=== PATIENT | female | born 1975 | race Caucasian/White ===

== ENCOUNTER 2017-08-27 05:16 | Emergency (ER) | payer MEDICAID ==
[~2017-08-27] VITALS: Ht 167.6 cm; Wt 68.0 kg
[~2017-08-27 05:16] MED LIST: CLIN150C8 PO; CLIN300C85 PO; HYDR-569 PO
[2017-08-27 05:21] VITALS: BP 142/82
[2017-08-27] MEDS ORDERED: bacitracin 15gm ointment TP ONE (05:30)
[2017-08-27] MEDS ORDERED: TETanus/Pertussis (Acell)/Diphther VAC/PF (Tdap-Adult) 0.5ml syringe IM ONE (05:30)
== END 2017-08-27 05:17 | disposition left against medical advice (07) ==
LOC: ER 05:16
DX: Z02.89 Encounter for other administrative examinations (principal); Z53.21 Procedure and treatment not carried out due to patient leaving prior to being seen by health care provider

== ENCOUNTER 2018-06-18 15:35 | Emergency (ER) | payer MEDICAID ==
[~2018-06-18] VITALS: Ht 175.3 cm; Wt 66.0 kg
[~2018-06-18 15:35] MED LIST changes: +CLIN-96 PO; -CLIN300C85 PO; +HYDR-4383 PO; -HYDR-569 PO
[2018-06-18 15:44] VITALS: BP 117/84
[2018-06-18 16:50] LABS: URINE HCG NEGATIVE (NEG)
--- NOTE | 2018-06-18 16:54 | NUR ---
CALLED LAB AND SPOKE TO RADHA, HE WILL ADD LIPASE AND SERUM TO PREVIOUS LABS
[2018-06-18 16:58] LABS: CLARITY,URINE CLOUDY (Clear); COLOR,URINE YELLOW (Yellow); GLUCOSE, URINE NEGATIVE (Neg); KETONES,URINE NEGATIVE (Neg); LEUKOCYTE ESTERASE ,URINE SMALL (Neg); NITRITES, URINE NEGATIVE (Neg); OCCULT BLOOD,URINE LARGE (Neg); PH,URINE 6.5 (4.8-8.0); PROTEIN,URINE NEGATIVE (Neg); UROBILINOGEN,URINE 0.2 E.U/dL (0.2-1.0)
[2018-06-18 17:00] LABS: UA COLLECTION TYPE CLN CATCH MIDSTREAM
[2018-06-18] MEDS ORDERED: CEPH-572 PO (17:04)
[2018-06-18] MEDS ORDERED: SULF1TAB49 PO (17:04)
[2018-06-18] MEDS ORDERED: HYDR-4383 PO (17:07)
[2018-06-18 17:33] LABS: MUCUS STRANDS MODERATE /LPF (Neg)
[2018-06-18 17:34] LABS: BACTERIA,URINE 2+ /HPF (Neg)
[2018-06-18 17:35] LABS: RBC,URINE 20-50 /HPF (0-2)
[2018-06-18 17:38] LABS: SQUAMOUS EPITHELIAL CELL,UR MANY /LPF (FEW); WBC CLUMPS,URINE MANY /HPF (NEGATIVE)
== END 2018-06-18 17:22 | disposition home or self-care (01) ==
LOC: ER 15:36
DX: L02.31 Cutaneous abscess of buttock (principal); N39.0 Urinary tract infection, site not specified; Z86.14 Personal history of Methicillin resistant Staphylococcus aureus infection; F12.90 Cannabis use, unspecified, uncomplicated; F11.90 Opioid use, unspecified, uncomplicated; F15.90 Other stimulant use, unspecified, uncomplicated; Z88.1 Allergy status to other antibiotic agents; Z79.899 Other long term (current) drug therapy
CPT/HCPCS: 10060; 81001; 81025; 99283

== ENCOUNTER 2018-06-25 16:31 | Emergency (ER) | payer MEDICAID ==
[~2018-06-25] VITALS: Ht 172.7 cm; Wt 65.9 kg
[~2018-06-25 16:31] MED LIST changes: +CEPH-572 PO; +SULF1TAB49 PO
[2018-06-25 16:38] VITALS: BP 113/68
== END 2018-06-25 17:40 | disposition home or self-care (01) ==
LOC: ER 16:31
DX: L02.414 Cutaneous abscess of left upper limb (principal); L02.413 Cutaneous abscess of right upper limb; L02.416 Cutaneous abscess of left lower limb; L02.415 Cutaneous abscess of right lower limb; Z48.01 Encounter for change or removal of surgical wound dressing; F17.200 Nicotine dependence, unspecified, uncomplicated; F12.90 Cannabis use, unspecified, uncomplicated; F15.90 Other stimulant use, unspecified, uncomplicated; F11.90 Opioid use, unspecified, uncomplicated; Z88.1 Allergy status to other antibiotic agents
CPT/HCPCS: 99281

== ENCOUNTER 2020-06-05 01:57 | Emergency (ER) | payer MEDICAID ==
[~2020-06-05] VITALS: Ht 175.3 cm; Wt 65.9 kg
[~2020-06-05 01:57] MED LIST changes: -CEPH-572 PO; -CLIN-96 PO; +CLIN-97 PO; -SULF1TAB49 PO
[2020-06-05] MEDS ORDERED: pantoprazole 40mg Tablet.DR PO ONE (02:40)
[2020-06-05] MEDS ORDERED: ibuprofen tablet 400 MG TABLET PO ONE (02:40)
[2020-06-05] MEDS ORDERED: LIDOcaine Viscous 15ml cup MM ONE (02:40)
[2020-06-05] MEDS ORDERED: mag hydrox/Alum hydrox/simeth 30ml oral suspension PO ONE (02:40)
[2020-06-05] MEDS ORDERED: ondansetron 4mg rapidly disintigrating tab PO ONE (02:40)
[2020-06-05] MEDS ORDERED: acetaminophen 325mg tablet PO ONE (02:40)
[2020-06-05] MEDS ORDERED: famotidine 20mg tablet PO ONE (02:40)
[2020-06-05 03:04] LABS: BASOPHILS # (AUTO) 0.1 X10'3 (0-0.2); BASOPHILS % (AUTO) 0.9 % (0-1); EOSINOPHILS # (AUTO) 0.1 X10'3 (0-0.9); EOSINOPHILS % (AUTO) 2.4 % (0-6); HEMATOCRIT 37.4 % (35.0-45.0); HEMOGLOBIN 12.9 g/dl (12.0-16.0); LYMPHOCYTES # (AUTO) 2.5 X10'3 (1.1-4.8); LYMPHOCYTES % (AUTO) 40.7 % (21-51); MEAN CORPUSCULAR HGB CONC 34.5 g/dL (33.0-36.5); MEAN CORPUSCULAR VOLUME 92.7 FL (78-98); MEAN PLATELET VOLUME 8.7 FL (7.4-10.4); MONOCYTES # (AUTO) 0.7 X10'3 (0-0.9); MONOCYTES % (AUTO) 12.2 % (2-12); NEUTROPHILS # (AUTO) 2.6 X10'3 (1.8-7.7); NEUTROPHILS % (AUTO) 43.8 % (42-75); PLATELET COUNT 177 X10'3 (140-440); RED BLOOD COUNT 4.04 X10'6 (4.20-5.60); RED CELL DISTRIBUTION WIDTH 13.1 % (11.5-14.5)
[2020-06-05 03:21] LABS: URINE HCG NEGATIVE (NEG)
[2020-06-05 03:38] LABS: CLARITY,URINE SLIGHTLY CLOUDY (Clear); COLOR,URINE YELLOW (Yellow); GLUCOSE, URINE NEGATIVE (Neg); KETONES,URINE NEGATIVE (Neg); LEUKOCYTE ESTERASE ,URINE TRACE (Neg); NITRITES, URINE POSITIVE (Neg); OCCULT BLOOD,URINE NEGATIVE (Neg); PH,URINE 6.5 (4.8-8.0); PROTEIN,URINE NEGATIVE (Neg); UA COLLECTION TYPE CLN CATCH MIDSTREAM
[2020-06-05 03:44] LABS: SQUAMOUS EPITHELIAL CELL,UR MODERATE /LPF (FEW)
[2020-06-05 03:45] LABS: RBC,URINE NONE SEEN /HPF (0-2)
[2020-06-05 03:46] LABS: BACTERIA,URINE 4+ /HPF (Neg); MUCUS STRANDS FEW /LPF (Neg)
[2020-06-05] MEDS ORDERED: clindamycin 150mg capsule PO ONE ×2 (04:55→05:35)
[2020-06-05] MEDS ORDERED: PANT-47 PO (04:57)
[2020-06-05] MEDS ORDERED: ONDA4TAB6 PO (04:57)
[2020-06-05] MEDS ORDERED: CLIN150C8 PO (04:57)
[2020-06-05 05:12] LABS: ALANINE AMINOTRANSFERASE 61 U/L (12-78); ALBUMIN 3.3 G/DL (3.4-5.0); ALBUMIN/GLOBULIN RATIO 0.8 (1.1-1.5); ALKALINE PHOSPHATASE 62 IU/L (46-116); ANION GAP 5 (8-16); ASPARTATE AMINO TRANSFERASE 41 U/L (10-37); BILIRUBIN,TOTAL 0.7 MG/DL (0.1-1.0); BLOOD UREA NITROGEN 14 MG/DL (7-18); BUN/CREATININE RATIO 17.7 (6.6-38.0); CALCIUM 8.9 MG/DL (8.5-10.1); CHLORIDE 103 MMOL/L (99-107); CREATININE 0.79 MG/DL (0.40-0.90); LIPASE 63 U/L (73-393); POTASSIUM 3.2 MMOL/L (3.5-5.1); SODIUM 140 MMOL/L (135-145); TOTAL CARBON DIOXIDE 32.1 MMOL/L (24-32); TOTAL PROTEIN 7.2 G/DL (6.4-8.2); TROPONIN I < 0.04 NG/ML (0.0-0.05); eGFR 79 ML/MIN
[2020-06-05 05:22] LABS: GLUCOSE 52 MG/DL (70-104)
[2020-06-05 05:40] VITALS: BP 127/78
== END 2020-06-05 05:48 | disposition home or self-care (01) ==
LOC: ER 01:57
DX: K21.9 Gastro-esophageal reflux disease without esophagitis (principal); N39.0 Urinary tract infection, site not specified; F12.90 Cannabis use, unspecified, uncomplicated; F15.90 Other stimulant use, unspecified, uncomplicated; F11.90 Opioid use, unspecified, uncomplicated; Z72.89 Other problems related to lifestyle; Z86.19 Personal history of other infectious and parasitic diseases; Z88.1 Allergy status to other antibiotic agents; Z79.2 Long term (current) use of antibiotics; Z79.899 Other long term (current) drug therapy; Z86.14 Personal history of Methicillin resistant Staphylococcus aureus infection
CPT/HCPCS: 36415; 80053; 81001; 81025; 83690; 84484; 85025; 87077; 87088; 87186; 93005; 99284

== ENCOUNTER 2020-09-14 22:58 | Emergency (ER) | payer MEDICAID ==
[~2020-09-14] VITALS: Ht 175.3 cm; Wt 63.6 kg
[~2020-09-14 22:58] MED LIST changes: +ONDA4TAB6 PO; +PANT-47 PO
[2020-09-14] MEDS ORDERED: PRED20TA PO (23:09)
[2020-09-14] MEDS ORDERED: dexamethasone 4mg tablet PO ONE (23:10)
[2020-09-14 23:43] VITALS: BP 138/72
== END 2020-09-14 23:47 | disposition home or self-care (01) ==
LOC: ER 22:59
DX: J02.9 Acute pharyngitis, unspecified (principal); F41.9 Anxiety disorder, unspecified; F32.9 Major depressive disorder, single episode, unspecified; F12.90 Cannabis use, unspecified, uncomplicated; F15.90 Other stimulant use, unspecified, uncomplicated; F11.90 Opioid use, unspecified, uncomplicated; F19.90 Other psychoactive substance use, unspecified, uncomplicated; Z86.19 Personal history of other infectious and parasitic diseases; Z86.14 Personal history of Methicillin resistant Staphylococcus aureus infection; Z72.89 Other problems related to lifestyle; Z88.1 Allergy status to other antibiotic agents; Z79.2 Long term (current) use of antibiotics; Z79.899 Other long term (current) drug therapy
CPT/HCPCS: 99283

== ENCOUNTER 2020-10-24 11:48 | Emergency (ER) | payer MEDICAID ==
[~2020-10-24] VITALS: Ht 175.3 cm; Wt 65.9 kg
[2020-10-24 12:13] VITALS: BP 129/90
[2020-10-24] MEDS ORDERED: bacitracin 15gm ointment TP ONE (13:20)
[2020-10-24] MEDS ORDERED: TETanus/Pertussis (Acell)/Diphther VAC/PF (Tdap-Adult) 0.5ml syringe IMVAC ONE (13:20)
== END 2020-10-24 13:34 | disposition home or self-care (01) ==
LOC: ER 11:48
DX: S80.812A Abrasion, left lower leg, initial encounter (principal); F12.90 Cannabis use, unspecified, uncomplicated; F15.90 Other stimulant use, unspecified, uncomplicated; F11.90 Opioid use, unspecified, uncomplicated; Z86.14 Personal history of Methicillin resistant Staphylococcus aureus infection; Z86.19 Personal history of other infectious and parasitic diseases; Z88.1 Allergy status to other antibiotic agents; Z79.2 Long term (current) use of antibiotics; Z79.899 Other long term (current) drug therapy; V09.9XXA Pedestrian injured in unspecified transport accident, initial encounter; Y93.89 Activity, other specified; Y92.89 Other specified places as the place of occurrence of the external cause; Y99.8 Other external cause status
CPT/HCPCS: 90471; 90715; 99283

== ENCOUNTER 2021-02-16 11:08 | Emergency (ER) | payer MEDICAID ==
[~2021-02-16] VITALS: Ht 172.7 cm; Wt 63.6 kg
[2021-02-16 11:10] VITALS: BP 137/82
[2021-02-16] MEDS ORDERED: LIDOcaine 1% W/epiNEPHrine 1:200,000 10ml vial IJ ONE (16:20)
[2021-02-16] MEDS ORDERED: LIDOcaine 1% w/epiNEPHrine 1:200,000 30ml vial IJ ONE (16:25)
[2021-02-16] MEDS ORDERED: SULF1TAB45 PO (16:44)
[2021-02-16] MEDS ORDERED: CEPH250T PO (16:44)
== END 2021-02-16 16:59 | disposition home or self-care (01) ==
LOC: ER 11:09
DX: L02.415 Cutaneous abscess of right lower limb (principal); F41.9 Anxiety disorder, unspecified; F32.9 Major depressive disorder, single episode, unspecified; F12.90 Cannabis use, unspecified, uncomplicated; F15.90 Other stimulant use, unspecified, uncomplicated; F11.90 Opioid use, unspecified, uncomplicated; F19.90 Other psychoactive substance use, unspecified, uncomplicated; Z86.19 Personal history of other infectious and parasitic diseases; Z86.14 Personal history of Methicillin resistant Staphylococcus aureus infection; Z72.89 Other problems related to lifestyle; Z88.1 Allergy status to other antibiotic agents; Z79.2 Long term (current) use of antibiotics; Z79.899 Other long term (current) drug therapy
CPT/HCPCS: 10060; 99283

== ENCOUNTER 2022-02-01 01:14 | Emergency (ER) | payer MEDICAID ==
[~2022-02-01] VITALS: Ht 172.7 cm; Wt 68.2 kg
[2022-02-01 01:47] VITALS: BP 136/84
[2022-02-02] MEDS ORDERED: BUPR1FIL20 SL (23:24)
== END 2022-02-01 06:18 | disposition left against medical advice (07) ==
LOC: ER 01:15
DX: M79.604 Pain in right leg (principal); Z53.21 Procedure and treatment not carried out due to patient leaving prior to being seen by health care provider

== ENCOUNTER 2022-02-02 15:58 | Inpatient (IN) | payer MEDICAID ==
[~2022-02-02] VITALS: Ht 175.3 cm; Wt 65.0 kg
[2022-02-02] MEDS ORDERED: vancomycin inj 1,000 MG in normal saline 250ml IV soln 250 ML IV STA (20:24)
[2022-02-02] MEDS ORDERED: clindamycin 600mg/D5W 50ml 50 ML IV ONE (20:25)
[2022-02-02] MEDS ORDERED: ketorolac trometh. 30mg/ml inj. IV ONE (20:25)
[2022-02-02] MEDS ORDERED: normal saline 1000ml 1,000 ML IV ONE (20:25)
[2022-02-02] MEDS ORDERED: proCHLORperazine 10 MG/2 ml inj IV ONE (20:30)
[2022-02-02] MEDS ORDERED: acetaminophen 325mg tablet PO ONE (20:30)
[2022-02-02] MEDS ORDERED: vancomycin/NS 1 GM ADD-VANTAGE 250 ML IV STA (20:32)
[2022-02-02] MEDS ORDERED: temazepam 15mg capsule PO PRN (21:00)
[2022-02-02 21:37] LABS: BASOPHILS % (AUTO) 0.2 % (0-1); EOSINOPHILS % (AUTO) 0.1 % (0-6); HEMATOCRIT 40.4 % (35.0-45.0); HEMOGLOBIN 13.5 g/dl (12.0-16.0); LYMPHOCYTES # (AUTO) 1.5 X10'3 (1.1-4.8); LYMPHOCYTES % (AUTO) 9.2 % (21-51); MEAN CORPUSCULAR HEMOGLOBIN 31.4 PG (27.0-31.0); MEAN CORPUSCULAR HGB CONC 33.4 g/dL (33.0-36.5); MEAN PLATELET VOLUME 7.8 FL (7.4-10.4); MONOCYTES # (AUTO) 1.7 X10'3 (0-0.9); MONOCYTES % (AUTO) 10.2 % (2-12); NEUTROPHILS % (AUTO) 80.3 % (42-75); PLATELET COUNT 179 X10'3 (140-440); RED CELL DISTRIBUTION WIDTH 14.6 % (11.5-14.5); WHITE BLOOD COUNT 16.1 X10'3 (4.5-11.0)
[2022-02-02 21:58] LABS: ALANINE AMINOTRANSFERASE 70 U/L (12-78); ALBUMIN 3.3 G/DL (3.4-5.0); ALBUMIN/GLOBULIN RATIO 0.7 (1.1-1.5); ALKALINE PHOSPHATASE 83 IU/L (46-116); ANION GAP 13 (8-16); ASPARTATE AMINO TRANSFERASE 37 U/L (10-37); BILIRUBIN,TOTAL 0.5 MG/DL (0.1-1.0); BLOOD UREA NITROGEN 14 MG/DL (7-18); BUN/CREATININE RATIO 17.7 (6.6-38.0); CALCIUM 9.5 MG/DL (8.5-10.1); CHLORIDE 104 MMOL/L (99-107); CREATININE 0.79 MG/DL (0.40-0.90); POTASSIUM 3.3 MMOL/L (3.5-5.1); SODIUM 140 MMOL/L (135-145); TOTAL CARBON DIOXIDE 23.4 MMOL/L (24-32); TOTAL PROTEIN 8.1 G/DL (6.4-8.2); eGFR 78 ML/MIN
[2022-02-02 21:59] LABS: GLUCOSE 111 MG/DL (70-104)
[2022-02-02] MEDS ORDERED: ondansetron/PF 4mg/2ml inj IV PRN (22:20)
[2022-02-02] MEDS ORDERED: acetaminophen 325mg tablet PO PRN (22:20)
[2022-02-02] MEDS ORDERED: morphine 2 MG/ML inj. syringe IV PRN ×2 (22:20)
[2022-02-02] MEDS: normal saline 1000ml 1,000 ML IV SCH (22:20)
[2022-02-02] MEDS ORDERED: HYDROcodone/acetaminophen 5mg/325mg tablet PO PRN (22:20)
[2022-02-02] MEDS ORDERED: magnesium 4gm in 100ml NS 100 ML IV PRN (22:20)
[2022-02-02] MEDS ORDERED: potassium Cl 40MEQ/1/2NS 520ml 520 ML IV PRN (22:20)
[2022-02-02] MEDS ORDERED: HYDROcodone/acetaminophen 10/325mg tab PO PRN (22:20)
[2022-02-02] MEDS ORDERED: magnesium Cl slow-release 64mg tablet PO PRN (22:20)
[2022-02-02] MEDS ORDERED: BUPR1FIL20 SL (23:24)
[2022-02-03] MEDS: acetaminophen 325mg tablet PO PRN ×2 (03:31→13:38)
--- NOTE | 2022-02-03 03:32 | NUR ---
TANA WAS PAGED AT [phone]
[2022-02-03 03:39] LABS: BASOPHILS % (AUTO) 0.2 % (0-1); EOSINOPHILS % (AUTO) 0.1 % (0-6); HEMATOCRIT 36.9 % (35.0-45.0); HEMOGLOBIN 12.7 g/dl (12.0-16.0); LYMPHOCYTES # (AUTO) 1.4 X10'3 (1.1-4.8); LYMPHOCYTES % (AUTO) 9.5 % (21-51); MEAN CORPUSCULAR HEMOGLOBIN 31.9 PG (27.0-31.0); MEAN CORPUSCULAR HGB CONC 34.3 g/dL (33.0-36.5); MEAN CORPUSCULAR VOLUME 93.1 FL (78-98); MEAN PLATELET VOLUME 8.1 FL (7.4-10.4); MONOCYTES # (AUTO) 1.8 X10'3 (0-0.9); MONOCYTES % (AUTO) 11.9 % (2-12); NEUTROPHILS # (AUTO) 11.9 X10'3 (1.8-7.7); NEUTROPHILS % (AUTO) 78.3 % (42-75); PLATELET COUNT 150 X10'3 (140-440); RED BLOOD COUNT 3.97 X10'6 (4.20-5.60); RED CELL DISTRIBUTION WIDTH 14.2 % (11.5-14.5); WHITE BLOOD COUNT 15.2 X10'3 (4.5-11.0)
[2022-02-03 03:51] LABS: ALANINE AMINOTRANSFERASE 57 U/L (12-78); ALBUMIN 2.8 G/DL (3.4-5.0); ALBUMIN/GLOBULIN RATIO 0.7 (1.1-1.5); ALKALINE PHOSPHATASE 76 IU/L (46-116); ANION GAP 10 (8-16); ASPARTATE AMINO TRANSFERASE 35 U/L (10-37); BILIRUBIN,TOTAL 0.5 MG/DL (0.1-1.0); BLOOD UREA NITROGEN 13 MG/DL (7-18); BUN/CREATININE RATIO 17.3 (6.6-38.0); CALCIUM 8.4 MG/DL (8.5-10.1); CHLORIDE 107 MMOL/L (99-107); CREATININE 0.75 MG/DL (0.40-0.90); GLUCOSE 117 MG/DL (70-104); POTASSIUM 3.1 MMOL/L (3.5-5.1); SODIUM 140 MMOL/L (135-145); TOTAL CARBON DIOXIDE 23.2 MMOL/L (24-32); eGFR 83 ML/MIN
[2022-02-03] MEDS: heparin, porcine 5000 units/ml vial SQ SCH ×2 (08:05→19:25)
[2022-02-03] MEDS: vancomycin/NS 1 GM ADD-VANTAGE 250 ML IV SCH ×2 (08:05→19:25)
[2022-02-03] MEDS: potassium Cl 20 mEq SR tablet PO PRN (08:11)
[2022-02-03] MEDS: K and/or MAG REPLACEMENT MC SCH ×2 (08:11→20:36)
[2022-02-03] MEDS: buprenorphine/naloxone 8MG-2MG SUBlingual film SL SCH ×3 (08:19→22:06)
[2022-02-03] MEDS: normal saline 1000ml 1,000 ML IV SCH ×2 (08:20→19:23)
--- NOTE | 2022-02-03 10:25 | NUR ---
patient refused breakfast,asleep at this time.
--- NOTE | 2022-02-03 12:04 | NUR ---
patient asleep. We will monitor.
--- NOTE | 2022-02-03 15:47 | NUR ---
Attempted to call report,Arcelia TOVAR unavailable.
--- NOTE | 2022-02-03 15:47 | NUR ---
Per Arcelia RN she will call ED RN as soon as the room is clean.
--- NOTE | 2022-02-03 16:00 | NUR ---
Report given to Arcelia TOVAR.
--- NOTE | 2022-02-03 16:26 | NUR ---
Patient in room ED 7. I have received report from Bia TOVAR ED and had the opportunity to ask questions and assume patient care.
--- NOTE | 2022-02-03 17:55 | NUR ---
Called Medsurg, room not clean yet per Matt TOVAR.
--- NOTE | 2022-02-03 17:59 | NUR ---
Room in [facility] is not clean yet.
--- NOTE | 2022-02-03 18:42 | NUR ---
Pt resting in bed. No distress. VSS. Bed in low, locked position. Call light provided. Waiting for inpatient transport.
--- NOTE | 2022-02-03 18:49 | NUR ---
Problems reprioritized. Patient report given, questions answered & plan of care reviewed with Prudence RN.
[2022-02-03 19:00] VITALS: BP 123/81
[2022-02-03 22:00] VITALS: BP 121/79
[2022-02-04] MEDS: normal saline 1000ml 1,000 ML IV SCH ×3 (04:20→20:59)
[2022-02-04] MEDS: acetaminophen 325mg tablet PO PRN (05:00)
[2022-02-04 06:00] VITALS: BP 139/93
--- NOTE | 2022-02-04 06:26 | NUR ---
Problems reprioritized. Patient report given, questions answered & plan of care reviewed with LEWIS TOVAR.
--- NOTE | 2022-02-04 06:58 | NUR ---
Patient in room [facility] 350B. I have received report from GUY SANCHEZ and had the opportunity to ask questions and assume patient care.
[2022-02-04] MEDS ORDERED: VANCOMYCIN LEVEL IV ONE (07:30)
[2022-02-04] MEDS: buprenorphine/naloxone 8MG-2MG SUBlingual film SL SCH ×3 (07:55→20:34)
[2022-02-04] MEDS: heparin, porcine 5000 units/ml vial SQ SCH ×2 (07:57→20:34)
[2022-02-04] MEDS: vancomycin/NS 1 GM ADD-VANTAGE 250 ML IV SCH (07:57)
[2022-02-04] MEDS: K and/or MAG REPLACEMENT MC SCH ×2 (08:00→20:00)
[2022-02-04 09:25] LABS: BASOPHILS % (AUTO) 0.4 % (0-1); EOSINOPHILS % (AUTO) 0.4 % (0-6); LYMPHOCYTES % (AUTO) 19.1 % (21-51); MEAN CORPUSCULAR HGB CONC 34.4 g/dL (33.0-36.5); MEAN CORPUSCULAR VOLUME 93.2 FL (78-98); MONOCYTES % (AUTO) 9.6 % (2-12); NEUTROPHILS # (AUTO) 7.3 X10'3 (1.8-7.7); NEUTROPHILS % (AUTO) 70.5 % (42-75); PLATELET COUNT 161 X10'3 (140-440); RED BLOOD COUNT 3.75 X10'6 (4.20-5.60); RED CELL DISTRIBUTION WIDTH 14.2 % (11.5-14.5); WHITE BLOOD COUNT 10.3 X10'3 (4.5-11.0)
[2022-02-04 09:50] LABS: ALANINE AMINOTRANSFERASE 44 U/L (12-78); ALBUMIN 2.3 G/DL (3.4-5.0); ALBUMIN/GLOBULIN RATIO 0.5 (1.1-1.5); ALKALINE PHOSPHATASE 81 IU/L (46-116); ANION GAP 10 (8-16); ASPARTATE AMINO TRANSFERASE 33 U/L (10-37); BILIRUBIN,TOTAL 0.6 MG/DL (0.1-1.0); BLOOD UREA NITROGEN 5 MG/DL (7-18); BUN/CREATININE RATIO 8.1 (6.6-38.0); CALCIUM 7.7 MG/DL (8.5-10.1); CHLORIDE 106 MMOL/L (99-107); CREATININE 0.62 MG/DL (0.40-0.90); GLUCOSE 83 MG/DL (70-104); SODIUM 142 MMOL/L (135-145); TOTAL CARBON DIOXIDE 26.5 MMOL/L (24-32); TOTAL PROTEIN 6.5 G/DL (6.4-8.2); VANCOMYCIN,TROUGH 9.6 UG/ML (6.0-14.0); eGFR > 90 ML/MIN
[2022-02-04 09:58] LABS: POTASSIUM 2.7 MMOL/L (3.5-5.1)
[2022-02-04 10:00] VITALS: BP 148/97
--- NOTE | 2022-02-04 10:00 | NUR ---
CRITICAL POTASSIUM 2.7, WILL REPLACE PER PROTOCOL, PAGED PAGER ID: [phone] MESSAGE: Rocael BRIAN RM 350B: CRITICAL POTASSIUM 2.7, WILL REPLACE PER PROTOCOL. SATYA SAUCEDO [id number]
[2022-02-04] MEDS ORDERED: ibuprofen tablet 400 MG TABLET PO PRN (10:40)
[2022-02-04] MEDS: potassium Cl 20 mEq SR tablet PO PRN ×3 (11:13→20:40)
[2022-02-04] MEDS: levoFLOXACIN-Levaquin 500mg/D5 100 ML IV SCH (11:13)
[2022-02-04 18:00] VITALS: BP 133/84
[2022-02-04] MEDS: VANCOmycin 1250MG/NS 250ml Bag 250 ML IV SCH (20:34)
[2022-02-04 22:00] VITALS: BP 136/90
[2022-02-05 06:00] VITALS: BP 131/87
--- NOTE | 2022-02-05 06:25 | NUR ---
Problems reprioritized. Patient report given, questions answered & plan of care reviewed with GUY Dudley.
--- NOTE | 2022-02-05 06:56 | NUR ---
Patient in room RYAN 350. I have received report from Ligia and had the opportunity to ask questions and assume patient care.
[2022-02-05 07:34] LABS: BASOPHILS # (AUTO) 0.1 X10'3 (0-0.2); BASOPHILS % (AUTO) 0.9 % (0-1); EOSINOPHILS % (AUTO) 0.6 % (0-6); HEMATOCRIT 36.9 % (35.0-45.0); HEMOGLOBIN 12.8 g/dl (12.0-16.0); LYMPHOCYTES # (AUTO) 1.7 X10'3 (1.1-4.8); LYMPHOCYTES % (AUTO) 23.3 % (21-51); MEAN CORPUSCULAR HEMOGLOBIN 32.2 PG (27.0-31.0); MEAN CORPUSCULAR HGB CONC 34.7 g/dL (33.0-36.5); MEAN CORPUSCULAR VOLUME 92.7 FL (78-98); MEAN PLATELET VOLUME 7.9 FL (7.4-10.4); MONOCYTES # (AUTO) 0.7 X10'3 (0-0.9); MONOCYTES % (AUTO) 10.1 % (2-12); NEUTROPHILS # (AUTO) 4.7 X10'3 (1.8-7.7); NEUTROPHILS % (AUTO) 65.1 % (42-75); PLATELET COUNT 192 X10'3 (140-440); RED BLOOD COUNT 3.98 X10'6 (4.20-5.60); RED CELL DISTRIBUTION WIDTH 14.5 % (11.5-14.5); WHITE BLOOD COUNT 7.3 X10'3 (4.5-11.0)
[2022-02-05 07:53] LABS: ALANINE AMINOTRANSFERASE 42 U/L (12-78); ALBUMIN 2.4 G/DL (3.4-5.0); ALBUMIN/GLOBULIN RATIO 0.6 (1.1-1.5); ALKALINE PHOSPHATASE 92 IU/L (46-116); ANION GAP 5 (8-16); ASPARTATE AMINO TRANSFERASE 30 U/L (10-37); BILIRUBIN,TOTAL 0.6 MG/DL (0.1-1.0); BLOOD UREA NITROGEN 6 MG/DL (7-18); BUN/CREATININE RATIO 9.5 (6.6-38.0); CALCIUM 7.9 MG/DL (8.5-10.1); CHLORIDE 106 MMOL/L (99-107); CREATININE 0.63 MG/DL (0.40-0.90); POTASSIUM 3.4 MMOL/L (3.5-5.1); SODIUM 137 MMOL/L (135-145); TOTAL CARBON DIOXIDE 25.9 MMOL/L (24-32); TOTAL PROTEIN 6.7 G/DL (6.4-8.2); eGFR > 90 ML/MIN
[2022-02-05] MEDS: K and/or MAG REPLACEMENT MC SCH ×2 (08:00→20:00)
[2022-02-05 08:03] LABS: GLUCOSE 96 MG/DL (70-104)
[2022-02-05] MEDS: levoFLOXACIN-Levaquin 500mg/D5 100 ML IV SCH (09:13)
[2022-02-05] MEDS: pantoprazole 40mg Tablet.DR PO SCH (09:13)
[2022-02-05] MEDS: buprenorphine/naloxone 8MG-2MG SUBlingual film SL SCH ×3 (09:14→19:56)
[2022-02-05] MEDS: heparin, porcine 5000 units/ml vial SQ SCH ×2 (09:15→19:52)
[2022-02-05 10:00] VITALS: BP 130/92
[2022-02-05] MEDS: normal saline 1000ml 1,000 ML IV SCH ×2 (11:42→20:20)
[2022-02-05] MEDS: VANCOmycin 1250MG/NS 250ml Bag 250 ML IV SCH ×2 (11:47→19:53)
[2022-02-05] MEDS: potassium Cl 20 mEq SR tablet PO PRN (17:34)
[2022-02-05 18:00] VITALS: BP 118/84
--- NOTE | 2022-02-05 18:40 | NUR ---
Problems reprioritized. Patient report given, questions answered & plan of care reviewed with Ligia.
[2022-02-05 22:00] VITALS: BP 123/80
[2022-02-06] MEDS ORDERED: potassium Cl 20 mEq SR tablet PO PRN ×2 (00:25)
[2022-02-06] MEDS ORDERED: potassium Cl 40MEQ/1/2NS 520ml 520 ML IV PRN (00:25)
[2022-02-06 06:00] VITALS: BP_SYST 117; BP_SYST 159; BP_DIAS 76; BP_DIAS 93
--- NOTE | 2022-02-06 06:18 | NUR ---
Problems reprioritized. Patient report given, questions answered & plan of care reviewed with GUY Marsh.
[2022-02-06] MEDS: normal saline 1000ml 1,000 ML IV SCH (06:20)
--- NOTE | 2022-02-06 06:30 | NUR ---
Patient in room RYAN 350. I have received report from Ligia TOVAR and had the opportunity to ask questions and assume patient care.
[2022-02-06] MEDS ORDERED: VANCOMYCIN LEVEL IV ONE (07:30)
[2022-02-06] MEDS ORDERED: K and/or MAG REPLACEMENT MC SCH (08:00)
[2022-02-06] MEDS: heparin, porcine 5000 units/ml vial SQ SCH (08:37)
[2022-02-06] MEDS: pantoprazole 40mg Tablet.DR PO SCH (08:37)
[2022-02-06] MEDS: buprenorphine/naloxone 8MG-2MG SUBlingual film SL SCH ×2 (08:38→13:54)
[2022-02-06 09:07] LABS: ALANINE AMINOTRANSFERASE 43 U/L (12-78); ALBUMIN 2.3 G/DL (3.4-5.0); ALBUMIN/GLOBULIN RATIO 0.5 (1.1-1.5); ALKALINE PHOSPHATASE 95 IU/L (46-116); ANION GAP 8 (8-16); ASPARTATE AMINO TRANSFERASE 48 U/L (10-37); BILIRUBIN,TOTAL 0.6 MG/DL (0.1-1.0); BLOOD UREA NITROGEN 6 MG/DL (7-18); BUN/CREATININE RATIO 8.6 (6.6-38.0); CALCIUM 8.4 MG/DL (8.5-10.1); CHLORIDE 106 MMOL/L (99-107); GLUCOSE 115 MG/DL (70-104); POTASSIUM 3.8 MMOL/L (3.5-5.1); SODIUM 138 MMOL/L (135-145); TOTAL CARBON DIOXIDE 23.9 MMOL/L (24-32); TOTAL PROTEIN 6.8 G/DL (6.4-8.2); VANCOMYCIN,TROUGH 9.9 UG/ML (6.0-14.0); eGFR 90 ML/MIN
[2022-02-06 09:10] LABS: BASOPHILS % (AUTO) 0.6 % (0-1); EOSINOPHILS # (AUTO) 0.1 X10'3 (0-0.9); EOSINOPHILS % (AUTO) 1.3 % (0-6); HEMATOCRIT 39.1 % (35.0-45.0); HEMOGLOBIN 13.2 g/dl (12.0-16.0); LYMPHOCYTES % (AUTO) 32.9 % (21-51); MEAN CORPUSCULAR HEMOGLOBIN 31.6 PG (27.0-31.0); MEAN CORPUSCULAR HGB CONC 33.8 g/dL (33.0-36.5); MEAN CORPUSCULAR VOLUME 93.5 FL (78-98); MEAN PLATELET VOLUME 7.5 FL (7.4-10.4); MONOCYTES # (AUTO) 0.6 X10'3 (0-0.9); MONOCYTES % (AUTO) 9.4 % (2-12); NEUTROPHILS # (AUTO) 3.4 X10'3 (1.8-7.7); NEUTROPHILS % (AUTO) 55.8 % (42-75); PLATELET COUNT 209 X10'3 (140-440); RED BLOOD COUNT 4.18 X10'6 (4.20-5.60); RED CELL DISTRIBUTION WIDTH 14.2 % (11.5-14.5); WHITE BLOOD COUNT 6.1 X10'3 (4.5-11.0)
[2022-02-06] MEDS: VANCOmycin 1250MG/NS 250ml Bag 250 ML IV SCH (09:59)
[2022-02-06 10:00] VITALS: BP 117/77
[2022-02-06] MEDS: levoFLOXACIN-Levaquin 500mg/D5 100 ML IV SCH (12:04)
--- NOTE | 2022-02-06 12:33 | NUR ---
Met with patient for substance/alcohol use and to see if patient wanted any resources for treatment options. Patient declined resources.
--- NOTE | 2022-02-06 12:44 | NUR ---
PAGER ID: [phone] MESSAGE: Salma Surg [id number] Re: 350B Dr Coy Rees came by changed patient to PO Keflex and stated ok to discharge patient
--- NOTE | 2022-02-06 13:40 | NUR ---
PAGER ID: [phone] MESSAGE: Salma Surg [id number] wanting to know if she will be getting discharged.. Please call
[2022-02-06] MEDS ORDERED: cephalexin 250 MG/5 ML oral suspension PO SCH (14:00)
[2022-02-06] MEDS ORDERED: CEPH-585 PO (15:23)
--- NOTE | 2022-02-06 16:00 | NUR ---
Patient discharge instructions reviewed with patient and patient verbalized understanding. Patient home medications retrieved from pharmacy. Patient IV dc'd cannula intact. Patient was given dressing change supplies for 3 days and patient verbalized understanding of dressing changes. Patients medications went to [facility]. Patient contacted her ride and is not driving just wants to wait for ride outside due to wanting to smoke. Patient was taken to lobby via wheelchair by [employer] student. Patient state she has all her belongings.
[2022-02-06] MEDS ORDERED: VANCOMYCIN 1,500MG in NS 300ml IVPB IV SCH (20:00)
[2022-02-08] MEDS ORDERED: VANCOMYCIN LEVEL IV ONE (07:30)
== END 2022-02-06 16:14 | disposition home or self-care (01) | DRG 383 ==
LOC: ER 15:59 → ED HOLD 22:23 → SUR 3N 02-03 18:53
PROVIDERS: ADMIT Internal Medicine; ATTEND Internal Medicine
DX: L03.115 Cellulitis of right lower limb (principal); B19.20 Unspecified viral hepatitis C without hepatic coma; E87.6 Hypokalemia; F17.200 Nicotine dependence, unspecified, uncomplicated; F32.A Depression, unspecified; F41.9 Anxiety disorder, unspecified; Z88.1 Allergy status to other antibiotic agents; Z88.0 Allergy status to penicillin
CPT/HCPCS: 36415; 80053; 80202; 83605; 84145; 85025; 87040; 87081; 97116; 97161; 99285; A6196; A6223; A6258; A6260; A6446; A6449; G0378; J0780; J1644; J1885; J1956; J3370; J3490; J7030

== ENCOUNTER 2022-02-15 17:05 | Emergency (ER) | payer MEDICAID ==
[~2022-02-15] VITALS: Ht 172.7 cm; Wt 62.7 kg
[~2022-02-15 17:05] MED LIST changes: +BUPR1FIL20 SL; +CEPH-585 PO; -CLIN-97 PO; -CLIN150C8 PO; -HYDR-4383 PO; -ONDA4TAB6 PO; -PANT-47 PO
[2022-02-15 20:30] VITALS: BP 117/86
== END 2022-02-16 00:32 | disposition left against medical advice (07) ==
LOC: ER 17:06
DX: M79.604 Pain in right leg (principal); Z53.21 Procedure and treatment not carried out due to patient leaving prior to being seen by health care provider

== ENCOUNTER 2023-08-29 14:36 | Outpatient (CLI) | payer MEDICAID ==
[~2023-08-29 14:36] MED LIST changes: -CEPH-585 PO
== END 2023-08-29 23:59 | disposition home or self-care (01) ==
LOC: RAD 14:36
PROVIDERS: ATTEND Nurse Practitioner Family
DX: M51.16 Intervertebral disc disorders with radiculopathy, lumbar region (principal); M47.27 Other spondylosis with radiculopathy, lumbosacral region; M48.07 Spinal stenosis, lumbosacral region
CPT/HCPCS: 72100